=== PATIENT | female | born 1990 | race Caucasian/White ===

== ENCOUNTER 2017-07-16 10:06 | Inpatient (IN) | payer OTHER ==
[~2017-07-16] VITALS: Ht 160 cm; Wt 83.2 kg
[~2017-07-16 10:06] MED LIST: IMPLANON68 MG ID; MOTRIN 600600 MG/TAB PO; NORCO 325 MG-51 TAB PO; PERCOCET 325 MG1 TA2 PO; PRENATAL1 TA1; SENOKOT S 50 MG1 TAB PO; TYLENOL 500MG500 MG PO
[2017-07-20] MEDS ORDERED: TUMS500 MG (09:23)
[2017-07-20] MEDS ORDERED: PRENATAL (09:23)
[2017-07-25] VITALS (32 sets, daily range): BP systolic 105–142; BP diastolic 56–89; PULSE 77–100; TEMP 97.6–98.8
[2017-07-25 07:51] LABS: BASO % 0.6 % (0.0-2.0); EOS # 0.1 (0.0-0.7); EOS % 0.8 % (0-4.0); GRAN # 4.9 (1.4-6.5); GRAN % 67.6 % (42.2-75.2); LYMPH # 1.6 (1.2-3.4); LYMPH % 22.6 % (20.0-51.0); MEAN CELL VOLUME 83 fl (80.0-100.0); MEAN CORPUSCULAR HGB CONC 33 g/dl (33.0-37.0); MONO # 0.6 (0.1-0.6); MONO % 7.8 % (1.7-9.3); PLATELET COUNT 243 K/mm3 (130-400); RED BLOOD COUNT 4.18 M/mm3 (4.10-5.30); REDCELL DISTRIBUTION WIDTH-CV 13.8 % (11.5-14.5)
[2017-07-25 07:58] LABS: HEMATOCRIT 34.8 % (37.0-47.0); HEMOGLOBIN 11.3 g/dl (12.5-16.0); MEAN CORPUSCULAR HEMOGLOBIN 27 pg (27.0-31.0)
[2017-07-25] MEDS ORDERED: MOTRIN 800800 MG/TAB PO (12:57)
[2017-07-25] MEDS ORDERED: PERCOCET 325 MG1 TA2 PO (12:57)
[2017-07-26 01:00] VITALS: BP 125/85; PULSE 84; TEMP 97.7
[2017-07-26 04:44] VITALS: BP 121/83; PULSE 80; TEMP 97.8
[2017-07-26 07:36] LABS: HEMATOCRIT 29.2 % (37.0-47.0); HEMOGLOBIN 9.4 g/dl (12.5-16.0)
[2017-07-26 09:35] VITALS: BP 136/79; PULSE 90; TEMP 98.3
== END 2017-07-26 15:10 | disposition home or self-care (01) | DRG 775 ==
LOC: LDR 07-25 07:10 → OB 07-25 15:20
PROVIDERS: Obstetrics & Gynecology
PROC: 10E0XZZ Delivery of Products of Conception, External Approach (ICD-10-PCS; principal; 2017-07-25)
PROC: 0KQM0ZZ Repair Perineum Muscle, Open Approach (ICD-10-PCS; 2017-07-25)
PROC: 3E033VJ Introduction of Other Hormone into Peripheral Vein, Percutaneous Approach (ICD-10-PCS; 2017-07-25)
DX: O48.0 Post-term pregnancy (principal); O70.1 Second degree perineal laceration during delivery; O66.0 Obstructed labor due to shoulder dystocia; Z3A.40 40 weeks gestation of pregnancy; Z37.0 Single live birth
CPT/HCPCS: J2590; J2795; J7120

== ENCOUNTER 2017-07-20 09:12 | Outpatient (CLI) | payer MEDICAID ==
[~2017-07-20] VITALS: Ht 160 cm; Wt 82.7 kg
[2017-07-20 09:16] VITALS: BP 128/90; PULSE 106; TEMP 98.2
[2017-07-20] MEDS ORDERED: TUMS500 MG (09:23)
[2017-07-20] MEDS ORDERED: PRENATAL (09:23)
[2017-07-20 09:30] VITALS: BP 128/85; BP 128/90; PULSE 106; PULSE 99; TEMP 98.2
[2017-07-20 09:45] VITALS: BP 125/87; PULSE 100
[2017-07-20 10:00] VITALS: BP 125/87; PULSE 100
[2017-07-20 10:30] VITALS: BP 121/84; PULSE 93
[2017-07-20 10:37] LABS: COLLECTION METHOD CLEAN CATCH
[2017-07-20 10:40] LABS: BASO % 0.6 % (0.0-2.0); EOS # 0.1 (0.0-0.7); EOS % 0.9 % (0-4.0); GRAN # 4.9 (1.4-6.5); HEMATOCRIT 34.8 % (37.0-47.0); HEMOGLOBIN 11.1 g/dl (12.5-16.0); LYMPH # 1.3 (1.2-3.4); LYMPH % 18.8 % (20.0-51.0); MEAN CELL VOLUME 86 fl (80.0-100.0); MEAN CORPUSCULAR HEMOGLOBIN 27 pg (27.0-31.0); MEAN CORPUSCULAR HGB CONC 32 g/dl (33.0-37.0); MEAN PLATELET VOLUME 12.1 fl (7.4-10.4); MONO # 0.6 (0.1-0.6); MONO % 9.1 % (1.7-9.3); PLATELET COUNT 239 K/mm3 (130-400); RED BLOOD COUNT 4.06 M/mm3 (4.10-5.30); REDCELL DISTRIBUTION WIDTH-CV 13.6 % (11.5-14.5)
[2017-07-20 10:47] VITALS: BP 124/83; PULSE 113
[2017-07-20 10:52] LABS: ALBUMIN 3.7 gm/dL (3.5-5.0); BILIRUBIN,TOTAL 0.3 mg/dL (0.0-1.0); CALCIUM 9.4 mg/dL (8.4-10.2); CREATININE, serum 0.59 mg/dL (0.52-1.25); POTASSIUM 4.1 mmol/L (3.4-5.0)
[2017-07-20 10:55] LABS: PH 5 (5-8); URINE APPEARANCE Clear; URINE BILIRUBIN Negative (NEGATIVE); URINE BLOOD Negative (NEGATIVE); URINE COLOR Yellow; URINE GLUCOSE Negative (NEGATIVE); URINE KETONE Negative (NEGATIVE); URINE LEUKOCYTE ESTERASE Negative (NEGATIVE); URINE NITRATE Negative (NEGATIVE); URINE PROTEIN(semi-quant) 1+ (NEGATIVE); URINE UROBILINOGEN Negative (NEGATIVE)
[2017-07-20 11:28] LABS: MUCOUS Present /lpf; SQUAMOUS EPITHELIAL 20-50 /hpf; URINE BACTERIA Rare /hpf; URINE CALCIUM OXALATE CRYSTAL Present /hpf
== END 2017-07-20 11:13 ==
LOC: LDRO 09:12
PROVIDERS: Obstetrics & Gynecology
DX: Z34.83 Encounter for supervision of other normal pregnancy, third trimester (principal); Z3A.39 39 weeks gestation of pregnancy

== ENCOUNTER → 2020-06-06 | Outpatient (REF) ==
[~2020-06-06] MED LIST changes: +MOTRIN 800800 MG/TAB PO; +PRENATAL; +TUMS500 MG
== END ==
LOC: WSOH 08:17
DX: Z02.89 Encounter for other administrative examinations (principal)